=== PATIENT | female | born 1955 | race Hispanic/Latino ===

== ENCOUNTER 2023-09-13 09:32 | Day surgery (SDC) | payer OTHER ==
[2023-09-09 14:29] LABS: BASOPHILS # (AUTO) 0.04 K/uL (0.00-0.20); BASOPHILS % (AUTO) 0.6 % (0.0-5.0); EOSINOPHILS % (AUTO) 7.5 % (0.0-8.0); HEMATOCRIT 43.3 % (36-48); IMMATURE GRANULOCYTE ABSOLUTE 0.01 K/uL (0-1); LYMPHOCYTES # (AUTO) 1.6 K/uL (1.0-4.8); LYMPHOCYTES % (AUTO) 24.2 % (21.0-51.0); MEAN CORPUSCULAR HEMOGLOBIN 31.9 pg (27.0-33.0); MEAN CORPUSCULAR VOLUME 96.7 fL (79-99); MONOCYTES # (AUTO) 0.5 K/uL (0.1-1.0); MONOCYTES % (AUTO) 7.7 % (3.0-13.0); NEUTROPHILS % (AUTO) 59.8 % (40.0-77.0); PLATELET COUNT (AUTO) 233 K/uL (130-400); RED BLOOD CELL COUNT(AUTO) 4.48 MIL/uL (4.00-5.50); RED CELL DISTRIBUTION WIDTH 14.6 % (11.0-15.5); WHITE BLOOD COUNT (AUTO) 6.7 K/uL (4.8-10.8)
[2023-09-09 14:42] LABS: CREATININE 0.8 mg/dL (0.5-1.5); POTASSIUM 4.6 mmol/L (3.5-5.1)
[2023-09-09 15:06] VITALS: BP 147/77; PULSE 95; RESP 18
[2023-09-09 15:19] LABS: INR 0.94 (0.85-1.15); PROTHROMBIN TIME 10.9 SEC (9.6-11.6)
[2023-09-09 15:20] LABS: PARTIAL THROMBOPLASTIN TIME 30.1 SEC (26.3-35.5)
[2023-09-13] VITALS (18 sets, daily range): BP systolic 125–139; BP diastolic 72–88; PULSE 62–95; RESP 12–20
[~2023-09-13] VITALS: Ht 157.5 cm; Wt 62.6 kg
[~2023-09-13 09:32] MED LIST: ALBU18HF7 IH; GLUC-145 PO; LUTEIN PO; MVI PO; TURMERIC PO; WOMENS PROBIOTIC PO; [UNRECOGNIZED DRUG - OTHER] PO; [UNRECOGNIZED DRUG - OTHER] PO; [UNRECOGNIZED DRUG - OTHER] PO; [UNRECOGNIZED DRUG - OTHER] PO; [UNRECOGNIZED DRUG - OTHER] PO; [UNRECOGNIZED DRUG - OTHER] PO; [UNRECOGNIZED DRUG - OTHER] PO; [UNRECOGNIZED DRUG - OTHER] PO; [UNRECOGNIZED DRUG - OTHER] PO
[2023-09-13] MEDS ORDERED: MIDAZOLAM HCL 1 MG/ML 2ML VIAL ONE (10:44)
[2023-09-13] MEDS ORDERED: ONDANSETRON 4MG INJ ONE (10:44)
[2023-09-13] MEDS ORDERED: FENTANYL CITRATE PF 50 MCG/1 ML 2ML VIAL ONE ×2 (10:44→12:05)
[2023-09-13] MEDS ORDERED: ROCURONIUM BROMIDE 10MG/1ML 5ML VL ONE (10:56)
[2023-09-13] MEDS ORDERED: PROPOFOL 10 MG/ML 20ML VIAL IV ONE (10:56)
[2023-09-13] MEDS ORDERED: ROPIVACAINE 0.5% 5MG/ML 30ML ONE (10:58)
[2023-09-13] MEDS ORDERED: DEXAMETHASONE SOD PHOSPHATE 10MG/ML 1ML VIAL ONE (10:59)
[2023-09-13] MEDS ORDERED: LIDOCAINE 2%-EPI 1:200,000 20 ML VIAL IJ ONE (10:59)
[2023-09-13] MEDS: CLINDAMYCIN IVPB 600MG/50ML 50 ML IV ONE (11:05)
[2023-09-13] MEDS: LACTATED RINGERS 1000ML 1,000 ML IV ONE (11:06)
[2023-09-13] MEDS: VANCOMYCIN 1G/250ML KIT 0 ML IV ONE (11:06)
[2023-09-13] MEDS ORDERED: PHENYLEPHRINE HCL 10 MG/ML 1ML VIAL IV ONE (11:27)
[2023-09-13] MEDS ORDERED: GLYCOPYRROLATE 0.2 MG/ML 5 ML VIAL ONE (12:02)
[2023-09-13] MEDS ORDERED: NEOSTIGMINE METHYLSULFATE 1MG/ML IV ONE (12:03)
[2023-09-13] MEDS ORDERED: METH-662 PO (12:04)
[2023-09-13] MEDS ORDERED: TRAM50TA4 PO (12:04)
[2023-09-13] MEDS ORDERED: GABA-529 PO (12:04)
[2023-09-13] MEDS ORDERED: DOCU-116 PO (12:04)
[2023-09-13] MEDS: DiphenhydrAMINE HCL 50 MG/ML VIAL ONE (13:06)
[2023-09-13] MEDS: MEPERIDINE-PF 25 MG/ML SYG ONE (13:06)
== END 2023-09-13 14:20 | disposition home or self-care (01) ==
LOC: DAH 09:32
PROVIDERS: ATTEND Surgery
DX: C50.411 Malignant neoplasm of upper-outer quadrant of right female breast (principal); I10 Essential (primary) hypertension; F41.9 Anxiety disorder, unspecified; E78.5 Hyperlipidemia, unspecified; Z79.01 Long term (current) use of anticoagulants; Z79.899 Other long term (current) drug therapy; Z98.890 Other specified postprocedural states; Z88.0 Allergy status to penicillin; Z88.8 Allergy status to other drugs, medicaments and biological substances; Z98.891 History of uterine scar from previous surgery; Z90.10 Acquired absence of unspecified breast and nipple; Z83.3 Family history of diabetes mellitus; Z80.3 Family history of malignant neoplasm of breast
CPT/HCPCS: 80048; 85025; 85610; 85730; 36415; 19301; 64450; 88307; 76942; A6260; A4663; J7120 ×2; A4649; J1200; J3010 ×2; J1100; J3490 ×4; J2250; J2704; J2405; J2710; J2175; J2795; J2371; A4930 ×2; A6447; A4215; A4223; A4222; A4221; A4600; J3370